=== PATIENT | male | born 1995 | race African-American/Black ===

== ENCOUNTER 2018-10-26 00:41 | Emergency (ER) | payer SELFPAY ==
[~2018-10-26] VITALS: Ht 172.7 cm; Wt 98.0 kg
[2018-10-26 06:37] VITALS: BP 150/83
== END 2018-10-26 08:45 | disposition home or self-care (01) ==
LOC: ER 00:41
DX: J02.9 Acute pharyngitis, unspecified (principal); R03.0 Elevated blood-pressure reading, without diagnosis of hypertension; F17.210 Nicotine dependence, cigarettes, uncomplicated; F12.90 Cannabis use, unspecified, uncomplicated
CPT/HCPCS: 99283

== ENCOUNTER 2020-06-30 17:56 | Emergency (ER) | payer MEDICAID ==
[~2020-06-30] VITALS: Ht 170.2 cm; Wt 98.0 kg
[2020-06-30 19:13] VITALS: BP 118/80
== END 2020-06-30 19:27 | disposition home or self-care (01) ==
LOC: ER 17:56
DX: R05 Cough (principal); Z20.828 Contact with and (suspected) exposure to other viral communicable diseases; F12.10 Cannabis abuse, uncomplicated
CPT/HCPCS: 71045; 87635; 99284

== ENCOUNTER 2025-03-06 20:52 | Emergency (ER) | payer MEDICAID ==
[~2025-03-06] VITALS: Ht 172.7 cm; Wt 121.0 kg
[2025-03-06 21:53] LABS: BASOPHILS % 0.4 % (0.0-2.0); EOSINOPHILS % 4.3 % (0.0-5.0); HEMATOCRIT. 46.9 % (42.0-52.0); HEMOGLOBIN. 16.1 g/dL (14.0-18.0); LYMPHOCYTES % 11.0 % (20.0-50.0); MEAN PLATELET VOLUME 8.9 fl (7.4-10.4); MONOCYTES % 3.2 % (2.0-8.0); NEUTROPHILS % 81.1 % (40.0-76.0); PLATELET 158 x1000/uL (130-400); RED BLOOD CELL COUNT 5.25 mill/uL (4.7-6.1); RED CELL DISTRIBUTION WIDTH 14.7 % (11.6-14.6)
[2025-03-06 22:07] LABS: CREATININE 1.4 mg/dL (0.6-1.3)
[2025-03-06 22:08] LABS: UREA NITROGEN BLOOD 10 mg/dL (9-23)
[2025-03-06] MEDS ORDERED: TOPUD PO (22:33)
[2025-03-06] MEDS ORDERED: SULF1TAB48 MT (22:33)
[2025-03-06] MEDS ORDERED: CEPH500T MT (22:33)
[2025-03-06] MEDS ORDERED: IBUP-2028 MT (22:33)
[2025-03-06] MEDS: SULFAMETHOXAZOLE/TRIMETHOPRIM 800/160MG TABLET PO STA (22:45)
[2025-03-06] MEDS: CEPHALEXIN 250MG CAPSULE PO STA (22:45)
[2025-03-06] MEDS: ACETAMINOPHEN 325MG TABLET PO ONE (22:46)
[2025-03-06] MEDS: IBUPROFEN 400MG TABLET PO ONE (22:46)
[2025-03-06 22:52] VITALS: BP 134/92; PULSE 84; RESP 18; TEMP 36.7; O2SAT 100
== END 2025-03-06 22:58 | disposition home or self-care (01) ==
LOC: ER 20:52
DX: L03.116 Cellulitis of left lower limb (principal); Z90.89 Acquired absence of other organs; Z79.899 Other long term (current) drug therapy
CPT/HCPCS: 36415; 80048; 85025; 99284